=== PATIENT | female | born 1925 | race Caucasian/White ===

== ENCOUNTER 2016-04-04 08:39 | Emergency (ER) | payer MEDICARE ==
[~2016-04-04] VITALS: Ht 149.9 cm; Wt 87.0 kg
[~2016-04-04 08:39] MED LIST: AMLO2.5T PO; ATOR10TA PO; CHOL50006 PO; CITRTAB16 PO; CRAN125T PO; GLUCTAB PO; LANSO15 PO; LEVO50TA51 PO; LOSA25TA31 PO; TAB-TAB PO; WARF5TAB PO
[2016-04-04 08:50] VITALS: BP 166/80; PULSE 86; RESP 16; TEMP 97.7; O2SAT 97
[2016-04-04] MEDS ORDERED: VITA10007 PO (09:25)
[2016-04-04] MEDS ORDERED: LEVO75TA3 PO (09:25)
[2016-04-04] MEDS ORDERED: SYSTSOL EACH EYE (09:25)
[2016-04-04] MEDS ORDERED: MULT-120 PO (09:25)
[2016-04-04] MEDS ORDERED: MAGN250T11 PO (09:25)
[2016-04-04] MEDS ORDERED: WARF-18 PO (09:25)
[2016-04-04] MEDS ORDERED: CRANCAP2 PO (09:25)
[2016-04-04] MEDS ORDERED: AMLO2.5T PO (09:25)
[2016-04-04] MEDS ORDERED: WARF-23 PO (09:25)
[2016-04-04] MEDS ORDERED: LOSA25TA PO (09:25)
[2016-04-04] MEDS ORDERED: CALCCHW9 CHEW (09:25)
[2016-04-04] MEDS ORDERED: METF500T PO (09:25)
[2016-04-04] MEDS ORDERED: VITA100064 PO (09:25)
[2016-04-04] MEDS ORDERED: ATOR10TA15 PO (09:25)
[2016-04-04] MEDS ORDERED: LANS30CA PO (09:25)
[2016-04-04] MEDS ORDERED: DEXAMETHASONE SOD PHOS 4 MG/ML VIAL IM ONE (09:30)
[2016-04-04] MEDS ORDERED: diphenhydrAMINE HCL 25 MG CAP PO ONE (09:30)
[2016-04-04] MEDS ORDERED: PRED20 PO (09:32)
--- NOTE | 2016-04-04 09:33 | PD ---
HPI Chief Complaint: Skin Problem Time Seen by Provider: 09:13 Travel History International Travel<30 days: No Contact w/Intl Traveler<30days: No Traveled to known affect area: No History of Present Illness HPI 89-year-old female complains of itching rash on the hands right and behind the ears. Patient states that the symptoms started yesterday. Patient has history of multiple allergies. Patient is not sure of the exposure at this time. Patient denies any problem with swallowing or shortness of breath. PFSH Past Medical History Hx Anticoagulant Therapy: Yes Asthma: Yes Atrial Fibrillation: Yes Blood Disorders: No Cancer: No Cardiovascular Problems: Yes High Cholesterol: Yes Diabetes: Yes Patient Takes Glucophage: Yes Diminished Hearing: No GERD: Yes Genitourinary: No Hepatitis: No Hiatal Hernia: No Hypertension: Yes Medical other: Yes (mild arthritis) Musculoskeletal: Yes Neurologic: Yes Psychiatric: No Respiratory: No Thyroid Disease: Yes (LOW ) Menopausal: Yes Past Surgical History Abdominal Surgery: Yes (appendectomy) Appendectomy: Yes Cardiac Surgery: No Ear Surgery: No Endocrine Surgery: No Eye Surgery: No Genitourinary Surgery: No Gynecologic Surgery: Yes (HYSTERECTOMY) Hysterectomy: Yes Joint Replacement: Yes (BILATERAL KNEES 2002) Oral Surgery: Yes (tonsillectomy) Pacemaker: No Thoracic Surgery: No Tonsillectomy: Yes Other Surgery: Yes (GANGLION CYST RIGHT WRIST) Social History Alcohol Use: No Tobacco Use: No Substance Use: No Allergies-Medications (Allergen,Severity, Reaction): Coded Allergies: Levaquin (Verified Allergy, Severe, weakness in arms, 04/04/16) Macrobid (Verified Allergy, Severe, 04/04/16) weakness KADI Inhibitors (Verified Allergy, Intermediate, UNKNOWN, 04/04/16) Doxycycline (Verified Allergy, Intermediate, UNKNOWN, 04/04/16) Ketoprofen (Verified Allergy, Intermediate, UNKNOWN, 04/04/16) Ofloxacin (Verified Allergy, Intermediate, UNKNOWN, 04/04/16) Polytrim (Verified Allergy, Intermediate, UNKNOWN, 04/04/16) Septra (Verified Allergy, Intermediate, UNKNOWN, 04/04/16) Sulfa (Verified Allergy, Intermediate, UNKNOWN, 04/04/16) Reported Meds & Prescriptions Reported Meds & Active Scripts Active Reported Systane Opth Drops (Polyethylene Glycol-Propylene Glycol Opth Drp) 0.4-0.3% Soln 1-2 Drop EACH EYE PRN PRN Vitamin C (Ascorbic Acid) 1,000 Mg Tab 1,000 Mg PO Vitamin D (Cholecalciferol) 1,000 Unit Tab 5,000 Units PO DAILY Cranberry Urinary Comfort (Vitamins C & E) 1 Cap 1 Cap PO DAILY Multivitamin Women (Multiple Vitamins W/ Minerals) 1 Tab Tab 1 Tab PO DAILY Magnesium Oxide 250 Mg Tab Unknown Dose PO DIRECTED Calcium 1200 (Calcium Carbonate-Vitamin D W/Minerals) 1,200-1,000 Mg-Unit Chew 1 Tab CHEW DAILY Warfarin 5 Mg Tab 5 Mg PO T,T,SAT Warfarin 2.5 Mg Tab 2.5 Mg PO M,W,F,SUN Metformin (Metformin HCl) 500 Mg Tab 500 Mg PO DAILY With a meal Losartan (Losartan Potassium) 25 Mg Tab 25 Mg PO BID Levothyroxine (Levothyroxine Sodium) 75 Mcg Tab 75 Mcg PO DAILY Lansoprazole 30 Mg Capdr 30 Mg PO DAILY Atorvastatin (Atorvastatin Calcium) 10 Mg Tab 10 Mg PO HS Amlodipine (Amlodipine Besylate) 2.5 Mg Tab 2.5 Mg PO DAILY Review of Systems General / Constitutional: No: Fever Eyes: No: Visual changes HENT: No: Headaches Cardiovascular: No: Chest Pain or Discomfort Respiratory: No: Shortness of Breath Gastrointestinal: No: Abdominal Pain Genitourinary: No: Dysuria Musculoskeletal: No: Pain Skin: Positive Rash, Positive Itching Neurologic: No: Weakness Psychiatric: No: Depression Endocrine: No: Polydipsia Hematologic/Lymphatic: No: Easy Bruising Physical Exam Narrative GENERAL: Well-nourished, well-developed patient. SKIN: Warm and dry. Patient has hives over the hands behind the ears. HEAD: Normocephalic. EYES: No scleral icterus. No injection or drainage. NECK: Supple, trachea midline. No JVD or lymphadenopathy. CARDIOVASCULAR: Regular rate and rhythm without murmurs, gallops, or rubs. RESPIRATORY: Breath sounds equal bilaterally. No accessory muscle use. No Stridor or wheezes. GASTROINTESTINAL: Abdomen soft, non-tender, nondistended. MUSCULOSKELETAL: No cyanosis, or edema. BACK: Nontender without obvious deformity. No CVA tenderness. Neurologic exam normal. Data Data Last Documented VS Vital Signs Date Time Temp Pulse Resp B/P Pulse Ox O2 Delivery O2 Flow Rate FiO2 04/04/16 08:50 97.7 86 16 166/80 97 Orders Dexamethasone Inj (Decadron Inj) (04/04/16 09:30) Diphenhydramine (Benadryl) (04/04/16 09:30) MDM Medical Decision Making Medical Screen Exam Complete: Yes Emergency Medical Condition: Yes Differential Diagnosis Differential diagnosis including allergic reaction, anaphylactoid reaction. Narrative Course 89-year-old female with itching rash. History of multiple allergies. Decadron 8 mg IM. Benadryl 25 g by mouth. Diagnosis Primary Impression: Allergic reaction Qualified Code: T78.40XA - Allergic reaction, initial encounter Patient Instructions: General Instructions Additional Instructions: Prednisone as directed. Polina as directed. Follow-up with personal physician. Return if increasing chest pain or shortness of breath. Check PT/ INR while on prednisone. Med/Other Pt SpecificInfo: Prescription(s) given Scripts Prednisone 20 Mg Tab20 Mg PO BID #10 TAB Prov:Avni Ibarra MD 04/04/16 Disposition: 01 DISCHARGE HOME Condition: Stable Avni Ibarra MD Apr 04, 2016 09:33
== END 2016-04-04 09:46 | disposition home or self-care (01) ==
LOC: PHED 08:39
DX: T78.40XA Allergy, unspecified, initial encounter (principal); R21 Rash and other nonspecific skin eruption; L29.9 Pruritus, unspecified; I48.91 Unspecified atrial fibrillation; E78.00 Pure hypercholesterolemia, unspecified; E11.9 Type 2 diabetes mellitus without complications; I10 Essential (primary) hypertension; E07.9 Disorder of thyroid, unspecified; Z79.01 Long term (current) use of anticoagulants; Z79.84 Long term (current) use of oral hypoglycemic drugs; Z87.09 Personal history of other diseases of the respiratory system; Z86.79 Personal history of other diseases of the circulatory system; Z87.19 Personal history of other diseases of the digestive system; Z87.39 Personal history of other diseases of the musculoskeletal system and connective tissue; Z86.69 Personal history of other diseases of the nervous system and sense organs
CPT/HCPCS: 96372; 99282; J1100